=== PATIENT | female | born 1980 | race Caucasian/White ===

== ENCOUNTER 2021-12-13 17:27 | Emergency (ER) | payer OTHER, SELFPAY ==
--- NOTE | 2021-12-13 17:36 | ED.GENADULT ---
HPI - General Adult General Chief complaint: Upper Respiratory Infection Stated complaint: nasal drainage Time Seen by Provider: 12/13/21 17:36 Source: patient Mode of arrival: ambulatory Limitations: no limitations History of Present Illness HPI narrative: 41-year-old female patient presents to the [facility] with complaints of cold symptoms for the past 3 days. Patient states she was running a fever on Wednesday and as high as 101 but no fever at this time. Patient states she does have a little bit of a cough, runny nose, drainage to the back of the throat and coughing up some drainage as well. Denies any chest pain at this time. Patient states she did have COVID last year in April 2021. Patient is not vaccinated against influenza or Covid at this time. Patient states she has been using [id number] Lyssa and Mucinex for her symptoms. Related Data Home Medications Medication Instructions Recorded Confirmed No Home Medications 12/13/21 12/13/21 Allergies Allergy/AdvReac Type Severity Reaction Status Date / Time phenobarbital Allergy Mild HIVES Verified 12/13/21 17:49 Review of Systems Review of Systems: CONSTITUTIONAL: Positive fever, chills, or sweats. EYES: Denies visual changes, redness, or discharge. ENT: Positive rhinorrhea, congestion, sore throat, denies otalgia. CARDIOVASCULAR: Denies chest pain, palpitations, or edema. RESPIRATORY: Positive cough denies dyspnea. GASTROINTESTINAL: Denies abdominal pain, nausea, vomiting, or diarrhea. GENITOURINARY: Denies dysuria or hematuria. SKIN: Denies rash or itching. MUSCULOSKELETAL: Denies back pain, joint pain, or myalgia. NEUROLOGIC: Denies headache, numbness, or weakness. PSYCHIATRIC: Denies anxiety or depression. [facility] Past Medical History Medical History (Updated 12/13/21 @ 18:09 by DEBBY Willis) GERD (gastroesophageal reflux disease) Hypercholesteremia Migraine Uterine fibroid Surgical History Surgical History (Updated 12/13/21 @ 17:38 by DEBBY Willis) H/O tubal ligation H/O: hysterectomy Family History Family History (Updated 12/13/21 @ 17:38 by DEBBY Willis) Other Diabetes mellitus Hypertension Comments At the time of my signature I agree with nursing past medical history, surgical, social, and family history. There is no relevant family history pertinent to the presenting complaint. Exam Narrative: GENERAL: Well-appearing, well-nourished, and in no acute distress. HEAD: Normocephalic, atraumatic. EYES: PERRLA and EOMI. ENT: Nares clear, no rhinorrhea or epistaxis. Mucous membranes moist. Posterior pharynx no erythema, tonsillar joint, exudates or lesions present. Bilateral TMs are clear no erythema or foreign bodies in the canal. NECK: Supple. No lymphadenopathy CHEST: Clear to auscultation. No respiratory distress. HEART: Regular rate and rhythm. No murmur heard. Normal peripheral pulses. ABDOMEN: Soft, nontender, nondistended, normal active bowel sounds. EXTREMITIES: Normal range of motion. No edema. SKIN: Warm, dry, no rash. NEURO: No focal deficits. Alert and oriented x3. Course Course Level of Care: Express Care Visit Reevaluation(s) Reevaluation #1: Reevaluated patient notified her that her influenza a test was positive rapid Covid was negative. Discussed with her that she can continue to treat herself with [id number] medications, plenty of rest, plenty of fluids if she has worsening symptoms such as chest pain, shortness of breath I would advise her to go the ER or follow-up with her primary doctor. Patient verbalized understanding denies any other questions or concerns at this time Date: 12/13/21 Time: 18:09 Vital Signs Vital signs: Vital Signs Temperature 36.6 C 12/13/21 17:38 Pulse Rate 98 12/13/21 17:38 Respiratory Rate 18 12/13/21 17:38 Blood Pressure 134/95 H 12/13/21 17:38 Pulse Oximetry 100 12/13/21 17:38 Temperature 36.6 C 12/13/21 17:38
[2021-12-13 17:38] VITALS: BP 134/95; PULSE 98; RESP 18; TEMP 36.6; O2SAT 100
== END 2021-12-13 18:13 | disposition home or self-care (01) ==
PROVIDERS: Emergency Provider Nurse Practitioner Family; PCP Internal Medicine
DX: J10.1 Influenza due to other identified influenza virus with other respiratory manifestations (principal); Z20.822 Contact with and (suspected) exposure to COVID-19; K21.9 Gastro-esophageal reflux disease without esophagitis; E78.00 Pure hypercholesterolemia, unspecified; Z86.16 Personal history of COVID-19
CPT/HCPCS: 87426; 87804; 99213; C9803; G0463

== ENCOUNTER 2022-11-28 11:13 | Emergency (ER) | payer OTHER, SELFPAY ==
--- NOTE | ~2022-11-28 | XR_ITS ---
EXAMINATION: XR chest 2V DATE: 11/28/2022 11:48 INDICATION: Left chest pain. Cough. TECHNIQUE: Frontal and lateral views of the chest were obtained. COMPARISON: None. FINDINGS: The chest demonstrates clear lungs without pneumonia, pleural effusion, or pneumothorax. Th e heart size is normal. Calcified left lung nodules are consistent with old granulomatous disease. IMPRESSION: 1. No acute cardiopulmonary disease. Reviewed, dictated and finalized at location A. [facility]
--- NOTE | 2022-11-28 11:19 | ED.URI ---
HPI - URI/Sore Throat General Chief Complaint: Upper Respiratory Infection Stated Complaint: COUGH/CONGESITON Time Seen by Provider: 11/28/22 11:19 Source: patient and RN notes reviewed Mode of arrival: ambulatory Limitations: no limitations History of Present Illness HPI Narrative: 42-year-old female presents with concern for cough and chest congestion. Reports she was seen by her primary doctor and is on day 8 of Augmentin and steroids. She reports symptoms have been improving, however today she coughed and she felt a pulling sensation in her mid chest under her left breast. She reports a dull ache that radiates between that area and her back. She denies chest pain, shortness of breath, diaphoresis, nausea. She denies any exacerbating or relieving factors to her discomfort. She reports mild midsternal tenderness, denies other tenderness to the area MD elicited complaint: cough Related Data Home Medications Medication Instructions Recorded Confirmed amoxicillin 875 mg-potassium 1 tablet PO BID 11/28/22 11/28/22 clavulanate 125 mg tablet benzonatate 100 mg capsule 100 mg PO DIRECTED 11/28/22 11/28/22 prednisone 10 mg tablet 10 mg PO DIRECTED 11/28/22 11/28/22 Allergies Allergy/AdvReac Type Severity Reaction Status Date / Time phenobarbital Allergy Mild HIVES Verified 11/28/22 11:16 Review of Systems Review of Systems: CONSTITUTIONAL: Denies malaise, chills, sweats, or fever. EYES: Denies visual changes, redness, or discharge. ENT: Reports rhinorrhea, congestion, sinus pain, otalgia and sore throat. CARDIOVASCULAR: Denies chest pain, palpitations, or edema. RESPIRATORY: Reports cough. Reports dull ache midsternal chest, occasionally in the back. denies dyspnea. GASTROINTESTINAL: Denies abdominal pain, nausea, vomiting, diarrhea SKIN: Denies rash or itching. MUSCULOSKELETAL: Denies myalgia. NEUROLOGIC: Denies headache. All systems reviewed & are unremarkable except as noted in HPI and below PMFSH Past Medical History Medical History (Updated 11/28/22 @ 12:05 by Keya Gaitan NP) GERD (gastroesophageal reflux disease) Hypercholesteremia Migraine Uterine fibroid Surgical History Surgical History (Updated 12/13/21 @ 17:38 by DEBBY Willis) H/O tubal ligation H/O: hysterectomy Family History Family History (Updated 12/13/21 @ 17:38 by DEBBY Willis) Other Diabetes mellitus Hypertension Comments At time of signature, agree with nursing past medical, surgical, social and family history. There is no relevant family history pertinent to the presenting complaint Exam Narrative: GENERAL: Well-appearing, well-nourished, and in no acute distress. HEAD: Normocephalic EYES: PERRLA, conjunctivae clear ENT: Nares clear. Mucous membranes moist. TM pearly knutson with sharp light reflex bilaterally; no tragal tenderness. Oropharynx not erythematous without lesions. Tonsils not enlarged and without exudate, no drooling, no hoarseness, no trismus, uvula midline. NECK: Supple. No lymphadenopathy CHEST: Clear to auscultation, breath sounds equal. No wheezing, rhonchi, rales, or stridor. No respiratory distress, speaks in full sentences. No tenderness palpation in the midsternum or left rib area HEART: Regular rate and rhythm. No murmur heard. SKIN: Warm, dry, no rash. NEURO: Alert and oriented x3. PSYCH: Normal mood and affect Course Course Emergency Course: Patient is aware of diagnosis, understands and agrees to treatment plan. Anticipatory guidance given. Patient agrees to follow-up as directed and is aware of reasons to seek care at the emergency department. Portions of this record may have been created with voice recognition software Level of Care: Express Care Visit Vital Signs Vital signs: Reviewed. MDM - URI/Sore Throat MDM Narrative Medical decision making narrative: Differential diagnosis considered: Atypical chest pain, cardiac event, orellana virus, strep pharyngitis,
[2022-11-28 11:24] VITALS: BP 135/91; PULSE 100; RESP 16; TEMP 36.4; O2SAT 100
== END 2022-11-28 12:06 | disposition home or self-care (01) ==
PROVIDERS: Emergency Provider Nurse Practitioner; PCP Internal Medicine
DX: J40 Bronchitis, not specified as acute or chronic (principal); K21.9 Gastro-esophageal reflux disease without esophagitis; E78.00 Pure hypercholesterolemia, unspecified
CPT/HCPCS: 71046; 99213; G0463